=== PATIENT | female | born 1975 | race Caucasian/White ===

== ENCOUNTER 2025-04-15 12:32 | Emergency (ER) | payer BC ==
[~2025-04-15] VITALS: Ht 175.3 cm; Wt 88.9 kg
[2025-04-15 12:38] VITALS: TEMP 98.3
[2025-04-15] MEDS ORDERED: ONDANSETRON HCL/PF 4 MG/2 ML VIAL ONE (12:49)
[2025-04-15 13:11] LABS: PLATELET COUNT (AUTO) 259 K/uL (150-450); RED BLOOD CELL COUNT(AUTO) 5.81 MIL/uL (4.0-5.2); RED CELL DISTRIBUTION WIDTH 15.4 % (11.5-15.0); WHITE BLOOD COUNT (AUTO) 17.6 K/uL (4.3-11.0)
[2025-04-15 13:20] LABS: CALCIUM, SERUM 10.4 mg/dL (8.5-10.1); CREATININE 0.6 mg/dL (0.6-1.3); SODIUM SERUM 138.0 mmol/L (136-145); UREA NITROGEN, BLOOD 17.0 mg/dL (7-18)
[2025-04-15] MEDS: ONDANSETRON HCL/PF 4 MG/2 ML VIAL IVP ONE (13:22)
[2025-04-15 13:24] LABS: ASPARTATE AMINOTRANSFERASE 45.0 U/L (15-37); TOTAL PROTEIN, SERUM 8.9 g/dL (6.4-8.2)
[2025-04-15] MEDS: IV NS 0.9% 1,000 ML BAG IV ONE (13:25)
[2025-04-15] MEDS ORDERED: MORPHINE SULFATE INJ 4 MG/ML DISP.SYRIN ONE (13:34)
[2025-04-15] MEDS ORDERED: METOCLOPRAMIDE HCL 10 MG/2 ML VIAL ONE (13:34)
[2025-04-15] MEDS: METOCLOPRAMIDE HCL 10 MG/2 ML VIAL IV ONE (13:41)
[2025-04-15] MEDS: MORPHINE SULFATE INJ 2 MG/ML DISP.SYRIN IV ONE (13:43)
[2025-04-15] MEDS ORDERED: PIPERACILLIN /TAZOBACTAM 3.375 G in IV D5W 50 ML IV ONE (15:00)
[2025-04-15 15:02] VITALS: BP 120/70; O2SAT 94
== END 2025-04-15 14:50 | disposition left against medical advice (07) ==
LOC: ER 12:41
DX: K56.609 Unspecified intestinal obstruction, unspecified as to partial versus complete obstruction (principal); R10.84 Generalized abdominal pain; R11.2 Nausea with vomiting, unspecified; K59.00 Constipation, unspecified; D72.829 Elevated white blood cell count, unspecified; Z53.29 Procedure and treatment not carried out because of patient's decision for other reasons; Z85.43 Personal history of malignant neoplasm of ovary; Z88.8 Allergy status to other drugs, medicaments and biological substances
CPT/HCPCS: 99285; 74176; 96374; 96361; 96375; 85025; 80048; 83690; 80076; 36415; J2270; J2765; J2405; J2543; J7060; J7030